=== PATIENT | male | born 1965 | race Caucasian/White ===

== ENCOUNTER 2016-11-25 10:40 | Emergency (ER) | payer OTHER ==
[2016-11-25 10:48] VITALS: TEMP 97.5
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
--- NOTE | 2016-11-25 12:01 | CT ---
EXAMINATION TYPE: CT brain cspine wo con DATE OF EXAM: 11/25/2016 COMPARISON: MRI brain August 07, 2009 HISTORY: Fall injury from wheelchair in with headache and neck pain CT DLP: 1389.0 mGycm. Automated Exposure Control for Dose Reduction was Utilized. TECHNIQUE: CT scan of the head and cervical spine are performed without contrast. FINDINGS: There is no acute intracranial hemorrhage or midline shift identified. There is ventricul ar and sulcal prominence consistent with diffuse cerebral atrophy. There is marked low-attenuation in the periventricular white matter. There is old infarct or encephalomalacia right frontal parietal re gion and the MCA distribution. The globes are intact and the visualized sinuses are clear. The calvar ium is intact. Cervical spine is visualized in its entirety from C1 through upper thoracic levels and demonstrates s traightened alignment without evidence of acute fracture or dislocation. Prevertebral soft tissue ap pears within normal limits. The C1-C2 articulation is within normal limits on the coronal images. Osseous structures are demineralized. Vertebral body heights are maintained. There is mild to moderat e spurring and disc space narrowing at C3-C4. There is moderate disc space narrowing and spurring at C6-C7 level. Posterior spur disc complexes are effacing anterior thecal sac at these levels on sagitt al images. Review of axial images shows a 1.5 cm hypodense nodule posteriorly mid pole level right th yroid on axial image 62 that warrants follow-up. This measures 2.4 cm in craniocaudal length on sagit shiela image 9. Visualized lung apices are clear. There is medial course to bilateral carotid arteries w ith mild/moderate calcified plaque noted bilaterally at the carotid bulb. IMPRESSION: 1. There is no acute fracture or dislocation evident in the cervical spine. Note is made of 2.4 cm cm right thyroid nodule, follow-up nonemergent thyroid ultrasound is advised to further assess. 2. No acute intracranial hemorrhage or midline shift is seen. There is moderate to severe diffuse cer ebral atrophy and chronic small vessel ischemic change with old right-sided MCA infarct identified, f indings are more prominent or progressed from 2010 MRI.
[2016-11-25 12:59] VITALS: BP 141/94; PULSE 97; RESP 16
== END 2016-11-25 12:58 | disposition home or self-care (01) ==
LOC: EC 10:40
DX: M79.642 Pain in left hand (principal); E04.1 Nontoxic single thyroid nodule; R51 Headache; Z87.891 Personal history of nicotine dependence; Z86.73 Personal history of transient ischemic attack (TIA), and cerebral infarction without residual deficits; W19.XXXA Unspecified fall, initial encounter
CPT/HCPCS: 70450; 72125; 96360; 99283; 99285